=== PATIENT | male | born 1990 | race Caucasian/White ===

== ENCOUNTER 2017-03-05 13:56 | Emergency (ER) | payer OTHER ==
[2017-03-05] MEDS ORDERED: ASPIRIN 81 MG CHEWABLE CTB PO STA (14:04)
[2017-03-05] MEDS ORDERED: NITROGLYCERIN 0.4 MG TAB SL PRN (14:04)
[2017-03-05] MEDS ORDERED: SODIUM CHLORIDE 0.9% FLUSH 10 ML SOL IV PRN (14:04)
[2017-03-05] MEDS ORDERED: KETOROLAC TROMETHAMINE 30 MG/ML SOL IV ONE (14:14)
[2017-03-05] MEDS ORDERED: KETOROLAC TROMETHAMINE 30 MG/ML SOL ONE (14:18)
[2017-03-05 14:21] LABS: HEMATOCRIT 43 % (39-53); MEAN CORPUSCULAR HGB CONC 35.1 gm/dl (32.0-36.0); MEAN CORPUSCULAR VOLUME 86 fL (80-100)
[2017-03-05 14:28] VITALS: RESP 16; TEMP 98.8
[2017-03-05 14:34] LABS: ALBUMIN 4.3 gm/dl (3.4-5.0); ALT 41 IU/L (14-63); CALCIUM 9.3 mg/dl (8.5-10.1); GLOM FILT RATE 91 mL/min (>60); POTASSIUM 3.7 mMol/L (3.5-5.1); SODIUM 138 mMol/L (136-145)
[2017-03-05 14:47] LABS: EOSINOPHILS % (MANUAL) 1 % (0-9); LYMPHOCYTES % (MANUAL) 47 % (10-50)
[2017-03-05 14:48] LABS: BASOPHILS % (MANUAL) 0 % (0-3); NORMAL RBCS PRESENT
[2017-03-05] MEDS ORDERED: ALUMINUM/MAGNESIUM 30 ML SUS PO ONE (15:13)
[2017-03-05] MEDS ORDERED: LIDOCAINE HCL 2% (VISCOUS) 20 ML SOL MT ONE (15:13)
[2017-03-05 15:59] VITALS: BP 158/69; PULSE 86; O2SAT 100
== END 2017-03-05 15:30 | disposition home or self-care (01) | DRG 313 ==
LOC: ED 13:56
DX: R07.89 Other chest pain (principal)
CPT/HCPCS: 71010; 80053; 82550; 83880; 84484; 85007; 85027; 85378; 85610; 85730; 93005; 99285; J1885